=== PATIENT | male | born 1955 | race Caucasian/White ===

== ENCOUNTER 2022-05-01 17:04 | Observation (INO) | payer MEDICARE ==
[~2022-05-01] VITALS: Ht 177.8 cm; Wt 99.8 kg
[2022-05-01 17:44] LABS: RED BLOOD COUNT 4.7 M/UL (4.20-5.50)
[2022-05-01 18:19] LABS: BUN/CREATININE RATIO 9 (0-10)
[2022-05-01] MEDS ORDERED: PROTONIX 40 MG40 M1 PO (23:01)
[2022-05-01] MEDS ORDERED: LISINOPRIL40 MG PO (23:02)
[2022-05-01] MEDS ORDERED: GABAPENTIN800 MG PO (23:03)
[2022-05-01] MEDS ORDERED: HYDROCODON-ACE1 EAC6 PO (23:03)
[2022-05-01] MEDS ORDERED: ROPINIROLE HCL1 MG PO (23:04)
[2022-05-01] MEDS ORDERED: CLONAZEPAM1 MG PO (23:07)
[2022-05-01] MEDS ORDERED: GEMFIBROZIL600 MG PO (23:09)
[2022-05-02] MEDS ORDERED: ATORVASTATIN CA10 MG PO ×2 (10:16→11:57)
[2022-05-02] MEDS ORDERED: AMLODIPINE BESY10 MG PO (10:16)
[2022-05-02] MEDS ORDERED: ISOSORBIDE MONO30 MG PO (11:57)
[2022-05-02] MEDS ORDERED: COREG12.5 MG PO (11:57)
[2022-05-02] MEDS ORDERED: NITROSTAT0.3 MG SL (12:00)
== END 2022-05-02 12:54 | disposition home or self-care (01) ==
LOC: ER1 17:04 → MED SURG 4 21:18 → CDU 21:18 → MED SURG 4 22:37
PROVIDERS: Physician Assistant; ADMIT Internal Medicine
DX: R07.89 Other chest pain (principal); I10 Essential (primary) hypertension; E78.5 Hyperlipidemia, unspecified; E66.9 Obesity, unspecified; Z68.30 Body mass index [BMI] 30.0-30.9, adult; K21.9 Gastro-esophageal reflux disease without esophagitis; E87.6 Hypokalemia; G89.4 Chronic pain syndrome; M54.50 Low back pain, unspecified; Z79.899 Other long term (current) drug therapy
CPT/HCPCS: ECHO; 36415; 71045; 78452; 80053; 80061; 82550; 82553; 83036; 83735; 84100; 84439; 84443; 84484; 84550; 85025; 85379; 85610; 85730; 86140; 93005; 93017; 93306; 99285; A9502; G0378; J2785; Q9967